=== PATIENT | female | born 1980 | race Two or more races ===

== ENCOUNTER 2018-01-23 14:07 | Emergency (ER) | payer OTHER ==
[2018-01-23] MEDS ORDERED: methylPREDNISolone SOD SUCC 125 MG/2 ML VIAL IVP ONE (14:27)
[2018-01-23] MEDS ORDERED: NS 500 ML IV ONE (14:27)
[2018-01-23] MEDS ORDERED: RANITIDINE 50 MG/2 ML VIAL IVP ONE (14:27)
[2018-01-23 14:33] VITALS: TEMP 98.6
--- NOTE | 2018-01-23 14:37 | EDPHY ---
Addendum entered and electronically signed by Geovanni Connors MD 01/24/18 00:14: As the patient was going through discharge paper the patient had some recurrence of urticaria which made her very anxious. On repeat examination she has no wheezing. Her apparent esophageal symptoms improved with prior treatment. She has received the maximal dose of Benadryl. She received Solu-Medrol as well. I explained that while she has urticaria currently there is no evidence of airway compromise, or other concerning symptoms. She is treated with a 0.5 mg of IV Ativan with resolution of her anxiety. I encouraged her to add nonsedating antihistamines to the Benadryl when she gets home. She will proceed with the allergy treatment established by Dr. Ferrer prior to transferring care to me as I see no need to add any other additional treatment plan. Original Note: H & P Smoking Status: Never smoked Time Seen by Provider: 01/23/18 14:27 HPI/ROS: HPI Allergic reaction. 37-year-old female by private vehicle. 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 She has a history of breaking out in hives and having areas of pruritus on her body most intensely on the palms of her hands going back about 8 months now. She reports that this condition started with extreme itching on the palms of her hands, her arms and sometimes her chest and back. She would get temporary relief from taking Benadryl. She reports that about 2 weeks ago she had a similar episode but then broke out in hives and a rash over her face upper chest back and arms. She was seen by her primary care physician and shorten. She was treated with steroids and antihistamines at that time. She reports that she recently came off a 2 week course of prednisone that was prescribed by this physician. She reports that she thought she was doing better. She was at work today where she has worked for the last 4 years when she suddenly developed a sensation of pruritus on her hands arms and face followed by breaking out in hives to these areas and then a sensation of swelling/a lump in her throat and difficulty swallowing. She has not seen an bmx rider yet for this condition. She denies any new medications. No history of food allergies. No change in diet. No foreign travel. No new products at her dental office that she may have come into contact with. She reports also feeling anxious at this time because of the symptoms. ROS: Constitutional: No fever, no chills. As above. Eyes: No discharge. No changes in vision. ENT: No sore throat. No nasal congestion or rhinorrhea. As above. Respiratory: No cough. As above. Cardiac: No chest pain, no palpitations. Gastrointestinal: No abdominal pain, no vomiting, no diarrhea. Genitourinary: No hematuria. No dysuria or increased frequency with urination. Musculoskeletal: No back pain. No neck pain. No myalgias or arthralgias. Skin: As above. Neurological: No headache. No focal weakness or altered sensation. Past medical history: Other than noted above, she denies any significant past medical history. Social history: Nonsmoker. Here by herself. Her parents live in [place]. She works at a dental office. Denies alcohol. Physical Exam: General Appearance: Alert, mildly anxious but not in distress. This patient is responding to questions appropriately and in full sentences. This patient appears well-hydrated and well-nourished. Eyes: Pupils equal and round no pallor or injection. No lid edema, erythema or injection. ENT, Mouth: Mucous membranes are moist. The pharyngeal tissues are unremarkable. No uvular, tonsillar, pharyngeal edema or swelling. No asymmetry suggestive of abscess. No erythema or exudates. No stridor on auscultation of her neck. No voice changes. Respiratory: There are no retractions, lungs are clear to auscultation with good air movement bilaterally. Cardiovascular: Regular rate and rhythm. No murmur. Gastrointestinal: Abdomen is soft and nontender, no masses, bowel sounds normal. No focal tenderness at McBurney's point. No Johnson sign. Neurological: Motor sensory function is grossly intact. Cranial nerves are normal. Gait is normal. Skin: Warm and dry, she has diffuse macular papular hives which are not erythematous but appear urticarial in nature over her face, her wrists and her chest. She has some subtle edema involving both lower eyelids. No petechiae. No significant erythema or warmth noted to these areas. Musculoskeletal: Neck is supple and nontender. Extremities are symmetrical. All joints range without pain or impingement. Psychiatric: No agitation. No depression. Database: EKG: Imaging: Procedures: Emergency department course: Vital signs reviewed. An IV was placed right antecubital, she was placed on a monitor. She was initially given 125 mg of IV Solu-Medrol, 50 mg of IV ranitidine, 25 mg of IV Benadryl and 300 mcg of intramuscular epinephrine. 3:00 p.m., the patient has just received her medications. Her care was turned over to Dr. Geovanni Connors at this time. Differential Diagnosis: The differential diagnosis on this patient includes but is not limited to hypersensitivity allergic reaction, stress reaction. Anaphylaxis, anaphylactoid reaction unlikely. This represents a partial list of diagnoses considered. These considerations are based on history, physical exam, past history, reassessment and diagnostic testing. (Davie Ferrer) Constitutional: Initial Vital Signs Temperature (C) 37 C 01/23/18 14:16 Heart Rate 121 H 01/23/18 14:16 Respiratory Rate 18 01/23/18 14:16 Blood Pressure 121/102 H 01/23/18 14:16 O2 Sat (%) 100 01/23/18 14:16 O2 Delivery Mode Room Air Allergies/Adverse Reactions: No Known Allergies Allergy (Unverified 01/23/18 14:29) Home Medications: Medication Instructions Recorded EPINEPHrine [Epipen 0.3 MG] 0.3 mg IM ONCE #1 syr 01/23/18 Famotidine [Pepcid] 40 mg PO BID #8 tab 01/23/18 ZYRTEC 01/23/18 diphenhydrAMINE [Benadryl 50 MG 50 mg PO Q6HRS #8 cap 01/23/18 (*)] predniSONE [prednisone 20mg (RX)] 60 mg PO DAILY #9 tab 01/23/18 Medical Decision Making ED Course/Re-evaluation: At 3:46 p.m. On recheck of this patient being treated for allergic reaction she reports that the urticaria has improved but she complains of a feeling of tightness between her shoulder blades and substernal region when she swallows. She states that this is mild intensity but she states that it feels like sensation similar to swallowing Ice cube. I suspect the patient is having an element of esophageal spasm. We discussed possibility of food allergy that she did have peanut butter today, though the onset of symptoms was hours after she ate peanut butter Will treat with Levsin and Maalox. These medications ordered at 3:47 p.m.. On recheck at 4:37 p.m. The patient feels improved with less discomfort esophageal area. Her urticaria also continues to improve. Her vital signs have normalized. She will follow up with [facility] rider as an outpatient as arranged by Dr. Ferrer. We answered all her questions prior to discharge home. (Geovanni Connors) - Data Points Medications Given: Discontinued Medications Al Hydroxide/Mg Hydroxide (Maalox Susp) 30 ml PO EDNOW ONE Stop: 01/23/18 15:46 Last Admin: 01/23/18 16:03 Dose: 30 ml Diphenhydramine HCl (Benadryl Injection) 25 mg IVP EDNOW ONE Stop: 01/23/18 14:28 Last Admin: 01/23/18 14:54 Dose: 25 mg Epinephrine HCl (Epinephrine) 0.3 mg IM EDNOW ONE Stop: 01/23/18 14:28 Last Admin: 01/23/18 14:49 Dose: 0.3 mg Hyoscyamine Sulfate (Levsin, Hyomax-Sl) 0.125 mg PO EDNOW ONE Stop: 01/23/18 15:46 Last Admin: 01/23/18 16:04 Dose: 0.125 mg Sodium Chloride (Ns) 500 mls @ 0 mls/hr IV ONCE ONE; Wide Open PRN Reason: Protocol Stop: 01/23/18 14:28 Last Admin: 01/23/18 14:47 Dose: 500 mls Lorazepam (Ativan Injection) 0.5 mg IVP EDNOW ONE Stop: 01/23/18 17:00 Last Admin: 01/23/18 17:14 Dose: 0.5 mg Methylprednisolone Sodium Succinate (Solu-Medrol) 125 mg IVP EDNOW ONE Stop: 01/23/18 14:28 Last Admin: 01/23/18 14:53 Dose: 125 mg Ranitidine HCl (Zantac) 50 mg IVP EDNOW ONE Stop: 01/23/18 14:28 Last Admin: 01/23/18 14:52 Dose: 50 mg Departure - Departure Disposition: Home, Routine, Self-Care Clinical Impression: Allergic reaction, Rash Condition: Good Instructions: Epinephrine (By injection), General Allergic Reaction (ED) Additional Instructions: Read and follow provided instructions. Follow-up portfolio specialist, Dr. Galilea Hayes, on Friday or Friday of this coming week for re-evaluation. You can call her office this afternoon for appointment time. Explained this is for an emergency department follow-up. Take medication as prescribed through entire course of treatment. Return to the emergency department for worsening symptoms, worsening rash, difficulty breathing, stridor, voice changes, sensation of swelling in your throat or other serious concerns. Referrals: Galilea Hayes MD [[facility] [place] - As per Instructions Prescriptions: diphenhydrAMINE [Benadryl 50 MG (*)] 50 mg PO Q6HRS #8 cap EPINEPHrine [Epipen 0.3 MG] 0.3 mg IM ONCE #1 syr Famotidine [Pepcid] 40 mg PO BID #8 tab predniSONE [prednisone 20mg (RX)] 60 mg PO DAILY #9 tab
[2018-01-23] MEDS ORDERED: MAG HYDROX/AL HYDROX/SIMETH 30 ML UDCUP PO ONE (15:45)
[2018-01-23] MEDS ORDERED: HYOSCYAMINE SULFATE 0.125 MG TAB PO ONE (15:45)
[2018-01-23] MEDS ORDERED: LORazepam 2 MG/ML INJ IVP ONE (16:59)
[2018-01-23 17:57] VITALS: BP 95/58; PULSE 103; RESP 16; O2SAT 94
== END 2018-01-23 17:52 | disposition home or self-care (01) ==
LOC: CED 14:07
DX: T78.40XA Allergy, unspecified, initial encounter (principal); E86.9 Volume depletion, unspecified
CPT/HCPCS: 96374; J0171; J1200; J2060; J2780; J2930